=== PATIENT | female | born 1985 | race Caucasian/White ===

== ENCOUNTER 2021-06-17 01:29 | Emergency (ER) | payer BC ==
[~2021-06-17] VITALS: Ht 170.2 cm; Wt 99.8 kg
[2021-06-17] MEDS ORDERED: TORADOL IV STA (01:48)
[2021-06-17 01:50] VITALS: BP_SYST 130; BP_SYST 134; BP_DIAS 54; BP_DIAS 56
--- NOTE | 2021-06-17 01:50 | ER.PDOC ---
General Chief Complaint: Requesting Medical Care Stated Complaint: R ARM PAIN Time seen by MD: 01:43 Source: patient Exam Limitations: no limitations History of Present Illness Initial Comments 35-year-old white female comes in with complaint that she fell and landed on her right arm exactly how she hurt the arm is not known by her she does not know whether she tried to catch her self or anything like that but her pain is just above the elbow. She has no other injuries that she complains of. Occurred: just prior to arrival Where: street Severity: moderate Modifying Factors: pain on movement Past Medical History Medical History: other Surgical History: hysterectomy (Chronic back pain), other (Lumbar fusion) Social History Smoking: greater than 1 pack/day Alcohol Use: occassionally Drug Use: none Review of Systems Musculoskeletal: joint pain All Other Systems: Reviewed and Negative Physical Exam General Appearance: Alert, No Apparent Distress Hand: nml inspection, non-tender Wrist: nml inspection, non-tender, nml ROM Forearm/Elbow: tenderness, limited ROM by pain, deformity (suspect dislocation) Arm/Shoulder: non-tender, nml ROM (shoulder good ) Neuro/Vasc/Tendon: sensation nml, motor nml, no vascular compromise, tendon function nml Skin: warm/dry Head/ENT: nml inspection, pharynx nml Neck/Back: nml inspection, non-tender Respiratory: chest non-tender, breath sounds nml CVS: heart sounds normal Abdomen: non-tender, no organomegaly Joint Reduction Joint Reduction : Joint Reduction Site: elbow (R) Pre-Procedure NV Exam: Yes Post-Procedure NV Exam: Yes Post Joint Reduction Film: joint reduced Results/Orders Results/Orders Orders - BRANDEE MATHEW MD Xr Elbow Rt (06/17/21 01:48) Ketorolac Tromethamine (Toradol) (06/17/21 01:48) Xr Elbow Rt (06/17/21 03:30) Fentanyl Citrate/Pf (Sublimaze) (06/17/21 02:05) Propofol (Diprivan) (06/17/21 03:13) Vital Signs Date Time Temp Pulse Resp B/P (MAP) Pulse Ox O2 Delivery O2 Flow Rate FiO2 06/17/21 01:50 97.0 85 18 06/17/21 01:50 97.0 85 18 97 Room Air 06/17/21 01:50 97.0 86 18 97 Administered Medications Medications (Trade) Dose Ordered Sig/Nikole Route PRN Reason Start Time Stop Time Status Last Admin Dose Admin Fentanyl Citrate (Sublimaze) 50 mcg OT STAT IV 06/17/21 02:05 06/17/21 02:06 UNV 06/17/21 02:06 50 MCG Ketorolac Tromethamine (Toradol) 30 mg OT STAT IV 06/17/21 01:48 06/17/21 01:49 UNV 06/17/21 01:52 30 MG Progress Progress Initial x-ray showed posterior dislocation of the elbow with no obvious fractures. Post reduction x-ray shows everything to be back in good position. Posterior splint is being applied and she will be placed in a sling with follow-up with Ortho early this week coming up ER DEPART Departure Time of Disposition: 03:35 Disposition: 01 HOME / SELF CARE / HOMELESS Impression: Primary Impression: Posterior dislocation of right elbow Condition: Improved Referrals: PCP,UNKNOWN (PCP) PRIMARY CARE PROVIDER KATELIN HILL MD Additional Instructions: follow up this week Comments Toradol 10mg, one po qid prn pain, #20 Duration or Time Spent with Pa: 20m BRANDEE MATHWE MD Jun 17, 2021 01:50
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
[2021-06-17] MEDS ORDERED: TORADOL ONE (02:02)
[2021-06-17] MEDS ORDERED: SUBLIMAZE IV STA (02:05)
--- NOTE | 2021-06-17 02:11 | DIREP ---
PROCEDURE:XRAY ELBOW 1VWS-RT COMPARISON:None. INDICATIONS:fall with pain just above the elbow FINDINGS: BONES:No visible fracture. JOINTS:Complete posterior elbow dislocation SOFT TISSUES:Generalized soft tissue swelling about the elbow. OTHER:Normal. CONCLUSION:Posterior elbow dislocation, post reduction views recommended. Dictated by: Yosi Miller M.D. on 06/17/2021 at 02:07 AM
[2021-06-17] MEDS ORDERED: DIPRIVAN IV ONE (03:13)
--- NOTE | 2021-06-17 03:47 | DIREP ---
PROCEDURE:XRAY ELBOW 2VWS-RT COMPARISON:[facility], , XRAY ELBOW 2VWS-RT, 06/17/2021, 01:54 AM. INDICATIONS:POST REDUCTION FINDINGS: BONES:Lateral view oblique, limited assessment for coracoid process fracture which can be associated with elbow dislocation. No fracture seen throughout the remainder of the elbow.. JOINTS:Lateral view oblique limiting assessment for fusion. SOFT TISSUES:Generalized soft tissue swelling noted about the right elbow elbow. OTHER:Normal. CONCLUSION: 1. Interval reduction of right elbow dislocation. 2. No fracture is visualized; however, limitations related to positioning as above. 3. Soft tissue swelling. Dictated by: Yosi Miller M.D. on 06/17/2021 at 03:40 AM
--- NOTE | 2021-06-17 04:10 | NUR ---
Pt presented with dislocated elbow. At 0320 Propofol mg was administered by RT, pt became unconscious in about 12seconds after administration. 0325 elbow was relocated by Dr Presley, 0327 x-ray performed to confirm elbow in place. . 0328 pt began arouding back to self, responds to commands, able to open eyes. 0329 pt was able to talk responding to questions. 0332 backing up the x-ray. Vital signs were 134/96, 68, 20, 98% @2l NC. Pt is awake, talkative, responds to pain and stimulus. Cast applied to arm 0347, will continue to monitor.
--- NOTE | 2021-06-17 07:15 | NUR ---
Called to the ED for a conscious sedation procedure for the reduction of a dislocated humerus. The patient was found supine in bed with related severe pain s.p. single level fall. The patient had a patent IV was conscious, alert, and oriented x 4 with verbal consent provided. A dose of 100mcg of propofol was administered IVP and optimal sedation achieved rather quickly. Oxygen via BVM assist was provided. VS: HR, RR, SpO2 were monitored continuously throughout the procedure. After the procedure was completed, the patient quickly regained cognitive awareness and the BVM assistance was transitioned to a NC at 2 lpm. The oxygen was discontinued at 0345. dipesh Addendum: 06/17/21 at 0719 by IONA CASTRO RT Amended: Links added.
== END 2021-06-17 05:13 | disposition home or self-care (01) ==
LOC: ER 01:36
DX: S53.124A Posterior dislocation of right ulnohumeral joint, initial encounter (principal); G89.29 Other chronic pain; Z90.710 Acquired absence of both cervix and uterus; Z79.1 Long term (current) use of non-steroidal anti-inflammatories (NSAID); W19.XXXA Unspecified fall, initial encounter; Y93.89 Activity, other specified; Y92.89 Other specified places as the place of occurrence of the external cause; Y99.8 Other external cause status
CPT/HCPCS: 24600; 73070 ×2; 96374; 96375; 99152; 99153; 99285; J1885; J3490; 23650; 24640; 29105; 99284